=== PATIENT | male | born 1990 | race Two or more races ===

== ENCOUNTER → 2017-02-12 | Outpatient (REF) | payer OTHER | LOC: M SMT 13:19 | PROVIDERS: ATTEND Urology | DX: Z30.2 Encounter for sterilization (principal) ==

== ENCOUNTER → 2017-04-08 | Outpatient (REF) | payer OTHER ==
[2017-04-08 12:05] LABS: IMMMOTILE SPERM CENTRIFUGED ABSENT (ABSENT); IMMOTILE SPERM ABSENT (ABSENT); MOTILE SPERM ABSENT (ABSENT); MOTILE SPERM CENTRIFUGED ABSENT (ABSENT)
== END ==
LOC: M LAB REF 11:40
PROVIDERS: ATTEND Urology
DX: Z30.2 Encounter for sterilization (principal)